=== PATIENT | male | born 1960 | race African-American/Black ===

== ENCOUNTER 2019-12-04 13:17 | Inpatient (IN) | payer OTHER ==
[2019-12-04] MEDS ORDERED: SODIUM CHLORIDE 0.9% 500 ML 500 ML IV ONE (13:49)
[2019-12-04] MEDS ORDERED: SODIUM CHLORIDE 0.9% 1000 ML 1,000 ML IV ONE (14:09)
[2019-12-04 14:16] LABS: Hematocrit 38.8 % (35.5-45.6); Hemoglobin 13.4 gm/dl (11.8-15.2); Mean Corpuscular HGB Conc 35 % (32-34); Mean Corpuscular Volume 87 fl (84-94); Platelet Count 381 K/mm3 (140-440); Red Blood Count 4.46 M/mm3 (3.65-5.03); Red Cell Distribution Width 13.2 % (13.2-15.2)
[2019-12-04] MEDS: SODIUM CHLORIDE 0.9% 1000 ML 1,000 ML IV ONE ×2 (14:20→15:00)
[2019-12-04 14:27] LABS: INR 1.17 (0.87-1.13)
[2019-12-04 14:40] LABS: Albumin 3.5 g/dL (3.9-5); Calcium 8.3 mg/dL (8.4-10.2)
[2019-12-04 14:52] LABS: Total Cells Counted 200
--- NOTE | 2019-12-04 14:52 | XRay Report ---
CHEST 1 VIEW 12/04/2019 1:46 PM INDICATION / CLINICAL INFORMATION: possible Sepsis. COMPARISON: None available. FINDINGS: SUPPORT DEVICES: None. HEART / MEDIASTINUM: No significant abnormality. LUNGS / PLEURA: No significant pulmonary or pleural abnormality. No pneumothorax. ADDITIONAL FINDINGS: No significant additional findings. IMPRESSION: No acute cardiopulmonary abnormality. Signer Name: Ta Spencer MD Signed: 12/04/2019 2:47 PM Workstation Name: [id number]
[2019-12-04 14:53] LABS: Basophils % (Manual) 0 % (0.0-1.8); Eosinophils % (Manual) 0 % (0.0-4.3); Large Platelets Few; Monocytes % (Manual) 4.5 % (0.0-7.3); Platelet Estimate Cons; RBC Morphology Normal; Toxic Granulation 1+
[2019-12-04] MEDS ORDERED: SODIUM CHLORIDE 0.9% 1000 ML IV SOLN IV ONE (16:20)
--- NOTE | 2019-12-04 16:22 | Emergency Department Report ---
- General Chief complaint: Hyperglycemia Stated complaint: HIGH BLOOD GLUCOSE Time Seen by Provider: 12/04/19 14:08 Source: patient, family Mode of arrival: Wheelchair Limitations: Language Barrier - History of Present Illness Initial comments: CC: "I am just so weak." HPI: THis is a 59 yo male without significant past medical history who presents with generalized weakness for several days Patient was diagnosed with diabetes by PCP. According to he has been unable to walk without assistance due to generalized weakness. Patient denies pain, fever. +nausea MD Complaint: generalized weakness -: Gradual, days(s) (several days) Location: generalized Severity: severe Consistency: constant Improves with: none Worsens with: none Context: recent illness (new diagnosis of diabetes) Associated Symptoms: denies other symptoms - Related Data Allergies Allergy/AdvReac Type Severity Reaction Status Date / Time No Known Allergies Allergy Unverified 12/04/19 13:48 ED Review of Systems ROS: Stated complaint: HIGH BLOOD GLUCOSE Other details as noted in HPI Comment: All other systems reviewed and negative Constitutional: malaise. denies: fever Respiratory: denies: cough, shortness of breath Cardiovascular: denies: chest pain Gastrointestinal: nausea. denies: abdominal pain Neurological: denies: headache ED Past Medical Hx - Past Medical History Previous Medical History?: No - Surgical History Past Surgical History?: No ED Physical Exam - General Limitations: Language Barrier General appearance: alert, other (pale, Kussmaul respirations) - Head Head exam: Present: atraumatic, normocephalic - Eye Eye exam: Present: normal appearance - ENT ENT exam: Present: normal orophraynx (no exudates or edema), mucous membranes dry - Neck Neck exam: Present: normal inspection, full ROM - Respiratory Respiratory exam: Present: normal lung sounds bilaterally, other (Kussmaul respirations). Absent: wheezes, rales, rhonchi - Cardiovascular Cardiovascular Exam: Present: normal rhythm, bradycardia, normal heart sounds. Absent: systolic murmur, diastolic murmur, rubs, gallop - GI/Abdominal GI/Abdominal exam: Present: soft, normal bowel sounds. Absent: distended, tenderness, guarding, rebound - Rectal Rectal exam: Present: deferred - Extremities Exam Extremities exam: Present: normal inspection - Neurological Exam Neurological exam: Present: alert, oriented X3 - Psychiatric Psychiatric exam: Present: normal affect, anxious - Skin Skin exam: Present: warm, dry, intact, normal color. Absent: rash ED Course Vital Signs 12/04/19 12/04/19 12/04/19 13:42 14:05 14:14 Temperature 97.6 F Pulse Rate 73 125 H 118 H Respiratory 18 31 H Rate Blood Pressure 97/63 Blood Pressure [Left] O2 Sat by Pulse 95 91 Oximetry 12/04/19 12/04/19 12/04/19 14:31 15:01 16:35 Temperature Pulse Rate 116 H 109 H 108 H Respiratory 30 H 32 H 25 H Rate Blood Pressure 96/64 127/48 Blood Pressure 135/79 [Left] O2 Sat by Pulse 100 100 100 Oximetry ED Medical Decision Making - Lab Data Result diagrams: 12/04/19 14:05 12/04/19 14:05 - EKG Data EKG shows normal: sinus rhythm, axis, QRS complexes, ST-T waves Rate: tachycardia - EKG Data 12/04/19 17:05 EKG obtained 1547 EKG interpreted by nj Sinus tachycardia rate 105 bpm normal axis prolonged QTC no ST elevation diffuse T wave flattening - Radiology Data Radiology results: report reviewed CHEST 1 VIEW 12/04/2019 1:46 PM INDICATION / CLINICAL INFORMATION: possible Sepsis. COMPARISON: None available. FINDINGS: SUPPORT DEVICES: None. HEART / MEDIASTINUM: No significant abnormality. LUNGS / PLEURA: No significant pulmonary or pleural abnormality. No pneumothorax. ADDITIONAL FINDINGS: No significant additional findings. IMPRESSION: No acute cardiopulmonary abnormality. - Medical Decision Making 1. Diabetic ketoacidosis, new onset diabetes. IV fluid resuscitation, IV insulin bolus, IV insulin infusion ordered. 2. Acute prerenal RODOLFO reflective of hypovolemia. likely vasomotor nephropathy with hyperkalemia. Hyperkalemia will resolve with IV insulin therapy. Patient is likely potassium depleted. He will ultimately need potassium repletion. 3. SIRS/Sepsis: Hypotension suspected due to hypovolemia however septic shock is a concern. Broad-spectrum antibiotics ordered. CT abdomen pelvis ordered in order to rule out intra-abdominal infection. Patient removed condom catheter according to nurse report. He ambulated to the bathroom without providing urine sample. 4. corrected sodium 132, 5. enteritis detected by CT scan, nonspecific finding in duodenum and jejunum, I am not convinced that this is a source of sepsis Critical Care Time: Yes Critical care attestation.: If time is entered above; I have spent that time in minutes in the direct care of this critically ill patient, excluding procedure time. 40 minutes of critical care time excluding procedures were used in the care of the patient. I came immediately to the bedside upon patient's arrival. I obtained history from EMS at the bedside. I discussed treatment plan with the nursing team members. I reviewed electronic record. I was concerned with diabetic ketoacidosis concerning patient's respiratory pattern . I was concerned for septic shock. Patient required multiple interventions and reassessments. ED Disposition Clinical Impression: Diabetes mellitus, new onset, Diabetic ketoacidosis, Prerenal acute renal failure, Sepsis Disposition: DC-[id number] OP ADMIT IP TO THIS HOSP Is pt being admited?: Yes Does the pt Need Aspirin: No Condition: Fair
[2019-12-04] MEDS ORDERED: INSULIN REGULAR, HUMAN 100 UNIT/ML 3ML VIAL IV ONE (16:23)
[2019-12-04] MEDS ORDERED: INSULIN REGULAR, HUMAN 100 UNITS/1 ML ONE (16:40)
[2019-12-04] MEDS ORDERED: INSULIN REGULAR, HUMAN 100 UNITS in SODIUM CHLORIDE 0.9% 99 ML IV SCH ×2 (17:00→18:00)
[2019-12-04] MEDS ORDERED: CEFEPIME/NS 2 GM/100 ML 2 GM/100 ML BAG IV SCH (17:00)
[2019-12-04] MEDS: metroNIDAZOLE/NS 500 MG/100 ML 500 MG/100 ML BAG IV SCH (17:25)
--- NOTE | 2019-12-04 17:27 | History and Physical Report ---
History of Present Illness Chief complaint: I have not been feeling well the past few days History of present illness: 59 YO Male with NO PMH presents to ED for evaluation. Patient states that he has been "feeling sick" over the past 3 days. Patient was seen and evaluated by his primary care physician and diagnosed with new onset diabetes. Patient reports that since that time he has experienced nausea, generalized weakness, decreased oral intake, polyuria, polydipsia, polyphagia. Patient also acknowledges decreased exercise tolerance, early fatigue, and inability to ambulate independently. Patient transported to [facility] via private vehicle for further care and evaluation. Patient seen and evaluated in the emergency department. All lab and imaging studies reviewed. Patient found to have sepsis, diabetic ketoacidosis, acute kidney injury, and metabolic acidosis. Patient admitted to ICU and initiated on sepsis as well as DKA protocols respectively. Patient denies fever, chills, chest pain, palpitations, productive cough, skin rash, recent ill contacts, or known exposure to COVID-19. No prior admission for review. No medication listed at time of admission for reconciliation. Past History Past Medical History: No medical history, other (Reviewed) Past Surgical History: No surgical history, Other (Reviewed) Social history: , lives with family. denies: smoking, alcohol abuse, prescription drug abuse Family history: no significant family history, other (Reviewed) Medications and Allergies Allergies Allergy/AdvReac Type Severity Reaction Status Date / Time No Known Allergies Allergy Unverified 12/04/19 13:48 Active Meds: Active Medications Insulin Human Regular 100 (units/ Sodium Chloride) 100 mls @ 6 mls/hr IV TITR ELIO; Protocol Metronidazole (Flagyl 500 Mg/100 Ml) 500 mg in 100 mls @ 100 mls/hr IV Q8H ELIO; Protocol Cefepime HCl (Cefepime/Ns 2 Gm/100 Ml) 2 gm in 100 mls @ 200 mls/hr IV Q12H ELIO; Protocol Review of Systems Constitutional: fatigue, weakness, malaise, no weight loss, no weight gain, no fever Ears, nose, mouth and throat: no ear pain, no ear discharge, no tinnitis, no decreased hearing, no nose pain Cardiovascular: no chest pain, no orthopnea, no palpitations, no rapid/irregular heart beat, no edema Respiratory: no cough, no cough with sputum, no hemoptysis, no shortness of breath, no dyspnea on exertion, no wheezing, no pain on inspiration Gastrointestinal: nausea, no abdominal pain, no vomiting, no diarrhea, no c onstipation Genitourinary Male: no hematuria, no flank pain, no discharge, no urinary frequency, no urinary hesitancy Rectal: no pain, no incontinence, no bleeding Musculoskeletal: no neck stiffness, no neck pain, no shooting arm pain, no arm numbness/tingling, no leg numbness/tingling, no redness of joints Integumentary: no rash, no pruritis, no redness, no sores, no wounds Neurological: no head injury, no transient paralysis, no paralysis, no weakness, no parathesias, no numbness Psychiatric: no anxiety, no memory loss (Sober), no hypersomnia, no change in appetite, no change in libido, no suicidal ideation Endocrine: polyphagia, excessive thirst, polydipsia, polyuria, no cold intolerance, no excessive sweating, no flushing, no proptosis, no deepening of the voice, no thyroid mass Hematologic/Lymphatic: no easy bruising, no easy bleeding, no lymphadenopathy, no lymphedema Allergic/Immunologic: no urticaria, no allergic rhinitis, no wheezing, no persistent infections, no anaphylaxis Exam - Constitutional Vitals: Temp Pulse Resp BP Pulse Ox 97.6 F 108 H 25 H 135/79 100 12/04/19 13:42 12/04/19 16:35 12/04/19 16:35 12/04/19 16:35 12/04/19 16:35 General appearance: Present: mild distress - EENT Eyes: Present: PERRL ENT: hearing intact, clear oral mucosa, other (Oral mucosa dry) - Neck Neck: Present: supple, normal ROM - Respiratory Respiratory effort: normal Respiratory: bilateral: CTA - Cardiovascular Rhythm: other (Tachycardia) Heart Sounds: Present: S1 & S2. Absent: rub, click - Extremities Extremities: pulses symmetrical, No edema Peripheral Pulses: abnormal (Capillary refill greater than 3.5 seconds) - Abdominal General gastrointestinal: Present: soft, non-tender, non-distended, normal bowel sounds Male genitourinary: Present: normal - Integumentary Integumentary: Present: dry, clammy, decreased turgor - Musculoskeletal Musculoskeletal: gait normal, strength equal bilaterally - Psychiatric Psychiatric: appropriate mood/affect, intact judgment & insight - Neurologic Neurologic: CNII-XII intact, moves all extremities Results - Labs CBC & Chem 7: 12/04/19 14:05 12/04/19 14:05 Labs: Abnormal lab results 12/04/19 12/04/19 12/04/19 Range/Units 14:02 14:05 14:05 WBC 33.0 H (4.5-11.0) K/mm3 MCHC 35 H (32-34) % Seg Neuts % (Manual) 93.5 H (40.0-70.0) % Lymphocytes % (Manual) 2.0 L (13.4-35.0) % Seg Neutrophils # Man 30.9 H (1.8-7.7) K/mm3 Lymphocytes # (Manual) 0.7 L (1.2-5.4) K/mm3 Monocytes # (Manual) 1.5 H (0.0-0.8) K/mm3 PT 15.1 H (12.2-14.9) Sec. INR 1.17 H (0.87-1.13) VBG pH (7.320-7.420) Sodium (137-145) mmol/L Potassium (3.6-5.0) mmol/L Chloride (98-107) mmol/L Carbon Dioxide (22-30) mmol/L BUN (9-20) mg/dL Creatinine (0.8-1.3) mg/dL Glucose (75-100) mg/dL POC Glucose 461 H (70-105) Lactic Acid (0.7-2.0) mmol/L Calcium (8.4-10.2) mg/dL Phosphorus (2.5-4.5) mg/dL Magnesium (1.7-2.3) mg/dL Albumin (3.9-5) g/dL 12/04/19 12/04/19 12/04/19 Range/Units 14:05 14:05 14:05 WBC (4.5-11.0) K/mm3 MCHC (32-34) % Seg Neuts % (Manual) (40.0-70.0) % Lymphocytes % (Manual) (13.4-35.0) % Seg Neutrophils # Man (1.8-7.7) K/mm3 Lymphocytes # (Manual) (1.2-5.4) K/mm3 Monocytes # (Manual) (0.0-0.8) K/mm3 PT (12.2-14.9) Sec. INR (0.87-1.13) VBG pH 7.128 L* (7.320-7.420) Sodium 120 L (137-145) mmol/L Potassium 5.8 H (3.6-5.0) mmol/L Chloride 84.5 L (98-107) mmol/L Carbon Dioxide 3 L* (22-30) mmol/L BUN 47 H (9-20) mg/dL Creatinine 1.5 H (0.8-1.3) mg/dL Glucose 595 H* (75-100) mg/dL POC Glucose (70-105) Lactic Acid 3.30 H* (0.7-2.0) mmol/L Calcium 8.3 L (8.4-10.2) mg/dL Phosphorus (2.5-4.5) mg/dL Magnesium (1.7-2.3) mg/dL Albumin 3.5 L (3.9-5) g/dL 12/04/19 12/04/19 Range/Units 16:34 16:34 WBC (4.5-11.0) K/mm3 MCHC (32-34) % Seg Neuts % (Manual) (40.0-70.0) % Lymphocytes % (Manual) (13.4-35.0) % Seg Neutrophils # Man (1.8-7.7) K/mm3 Lymphocytes # (Manual) (1.2-5.4) K/mm3 Monocytes # (Manual) (0.0-0.8) K/mm3 PT (12.2-14.9) Sec. INR (0.87-1.13) VBG pH (7.320-7.420) Sodium (137-145) mmol/L Potassium (3.6-5.0) mmol/L Chloride (98-107) mmol/L Carbon Dioxide (22-30) mmol/L BUN (9-20) mg/dL Creatinine (0.8-1.3) mg/dL Glucose (75-100) mg/dL POC Glucose (70-105) Lactic Acid 2.20 H* (0.7-2.0) mmol/L Calcium (8.4-10.2) mg/dL Phosphorus 4.60 H (2.5-4.5) mg/dL Magnesium 2.50 H (1.7-2.3) mg/dL Albumin (3.9-5) g/dL Assessment and Plan - Patient Problems (1) Sepsis Current Visit: Yes Status: Acute Plan to address problem: Sepsis Protocol: CBC, CMP, chest x-ray, urinalysis, IV antibiotic therapy, IV fluid resuscitation therapy, monitor urine output every shift, maintain mean arterial pressure greater than or equal to 65, serial lactic acid level, blood culture. The high probability of a clinically significant, sudden or life threatening deterioration of the [neuro, renal, endocrine] system(s) required my full and direct attention, intervention and personal management. The aggregate critical care time was [65] minutes. This time is in addition to time spent performing reported procedures but includes the following: [x] Data Review and interpretation [x] Patient assessment and monitoring of vital signs [x] Documentation [x] Medication orders and management (2) Acute kidney injury (RODOLFO) with acute tubular necrosis (ATN) Current Visit: Yes Status: Acute Plan to address problem: IV fluid resuscitation therapy, monitor urine output every shift, avoid n ephrotoxic agents. BMP, repeat BMP in a.m. to monitor serum creatinine. (3) Metabolic acidosis Current Visit: Yes Status: Acute Plan to address problem: IV fluid resuscitation therapy, serial lactic acid level, IV bicarbonate therapy. (4) Diabetic ketoacidosis Current Visit: Yes Status: Acute Qualifiers: Diabetes mellitus type: type 1 Plan to address problem: DKA protocol: Insulin drip, IV fluid resuscitation therapy, serial BMP, monitor anion gap, monitor urine output every shift. Potassium repletion as per protocol. (5) DVT prophylaxis Current Visit: Yes Status: Acute Plan to address problem: SCD to bilateral lower extremities while in bed, patient is ambulatory.
[2019-12-04] MEDS ORDERED: ACETAMINOPHEN 325 MG TAB PO PRN (17:28)
[2019-12-04] MEDS ORDERED: SODIUM BICARB 8.4% 50 MEQ/50 ML SYRINGE IV ONE ×2 (17:30→18:39)
[2019-12-04] MEDS ORDERED: ALBUTEROL 2.5 MG/3 ML NEBU IH PRN (17:32)
[2019-12-04] MEDS: CEFEPIME/NS 2 GM/100 ML 2 GM/100 ML BAG IV SCH (17:45)
--- NOTE | 2019-12-04 17:50 | Cat Scan Report ---
CT abdomen pelvis wo con INDICATION: sepsis. TECHNIQUE: All CT scans at this location are performed using the following dose modulation technique: Automated exposure control. Helical slices were obtained through the abdomen and pelvis. No contrast is adminis tered. COMPARISON: None available. FINDINGS: Abdomen: There is a small right pleural effusion. There is a hiatal hernia. The stomach is distended with fluid. The liver, spleen, pancreas, adrenal glands, and kidneys show no acute abnormality. There is wall thi ckening noted in the duodenum and proximal jejunum. The remainder of the small bowel is unremarkable. There are no renal or ureteral calculi. There is no inflammatory change. There is no free air. Pelvis: There is no obstruction or inflammation. There are no abnormal fluid collections. On review of bone windows, no acute osseous abnormalities are seen. IMPRESSION: 1. There is abnormal wall thickening in the duodenum and proximal jejunum suggesting an enteritis or less likely an infiltrative process.The stomach is distended with fluid. There is a small hiatal bebeto ia. There is a small right pleural effusion. Signer Name: Duane Montoya MD Signed: 12/04/2019 5:45 PM Workstation Name: [id number]
[2019-12-04 18:15] LABS: BUN/Creatinine Ratio 38; Blood Urea Nitrogen 46 mg/dL (9-20); Calcium 7.6 mg/dL (8.4-10.2); Hemolysis Index 14
[2019-12-04 19:53] LABS: Bilirubin,Urine NEG (Negative); Blood,Urine SM (Negative); Color,Urine Straw (Yellow); Mucus,Urine FEW /HPF; Protein,Urine <15 mg/dL mg/dL (Negative); Urobilinogen,Urine < 2.0 mg/dL (<2.0); WBC,Urine < 1.0 /HPF (0.0-6.0)
[2019-12-04 19:58] LABS: BUN/Creatinine Ratio 47; Hemolysis Index 21
[2019-12-04 20:18] LABS: Calcium 1.6 mg/dL (8.4-10.2)
[2019-12-04 20:22] LABS: Blood Urea Nitrogen 42 mg/dL (9-20)
[2019-12-04] MEDS: SODIUM CHLORIDE 0.9% 1000 ML 1,000 ML IV SCH (21:00)
[2019-12-04 22:00] LABS: BUN/Creatinine Ratio 36; Blood Urea Nitrogen 40 mg/dL (9-20); Calcium 7.9 mg/dL (8.4-10.2); Hemolysis Index 9
[2019-12-04] MEDS ORDERED: D5W/0.45% NACL/KCL 20 MEQ 20 MEQ/1,000 ML BAG IV ONE (22:49)
[2019-12-04] MEDS: D5W/0.45% NACL/KCL 20 MEQ 20 MEQ/1,000 ML BAG IV SCH (22:57)
[2019-12-05 00:18] LABS: BUN/Creatinine Ratio 44; Blood Urea Nitrogen 35 mg/dL (9-20); Hemolysis Index 5
[2019-12-05 02:15] LABS: BUN/Creatinine Ratio 41; Blood Urea Nitrogen 33 mg/dL (9-20); Calcium 7.9 mg/dL (8.4-10.2); Hemolysis Index 132
[2019-12-05] MEDS ORDERED: metroNIDAZOLE/NS 500 MG/100 ML 500 MG/100 ML BAG IV ONE ×3 (04:48→18:08)
[2019-12-05] MEDS ORDERED: HEPARIN 5,000 UNIT/1 ML VIAL ONE ×2 (04:48→14:09)
[2019-12-05] MEDS: metroNIDAZOLE/NS 500 MG/100 ML 500 MG/100 ML BAG IV SCH ×3 (04:53→18:15)
[2019-12-05] MEDS: HEPARIN 5,000 UNIT/1 ML VIAL SUB-Q SCH ×3 (04:54→22:25)
[2019-12-05 06:11] LABS: Hemoglobin 11.8 gm/dl (11.8-15.2); Mean Corpuscular HGB Conc 36 % (32-34); Mean Corpuscular Volume 83 fl (84-94); Platelet Count 284 K/mm3 (140-440); Red Blood Count 3.96 M/mm3 (3.65-5.03); Red Cell Distribution Width 13.1 % (13.2-15.2)
[2019-12-05 06:28] LABS: Alanine Aminotransferase 6 units/L (7-56); Blood Urea Nitrogen 27 mg/dL (9-20); Calcium 7.8 mg/dL (8.4-10.2); Hemolysis Index 10
[2019-12-05 06:34] LABS: BUN/Creatinine Ratio 39
--- NOTE | 2019-12-05 06:45 | Progress Note ---
Assessment and Plan Assessment and plan: 59 YO Male with NO PMH presents to ED for evaluation. Patient states that he has been "feeling sick" over the past 3 days. Patient was seen and evaluated by his primary care physician and diagnosed with new onset diabetes. Patient reports that since that time he has experienced nausea, generalized weakness, decreased oral intake, polyuria, polydipsia, polyphagia. Patient also acknowledges decreased exercise tolerance, early fatigue, and inability to ambulate independently. Patient transported to [facility] via private vehicle for further care and evaluation. Patient seen and evaluated in the emergency department. All lab and imaging studies reviewed. Patient found to have sepsis, diabetic ketoacidosis, acute kidney injury, and metabolic acidosis. Patient admitted to ICU and initiated on sepsis as well as DKA protocols respectively. Patient denies fever, chills, chest pain, palpitations, pr oductive cough, skin rash, recent ill contacts, or known exposure to COVID-19. No prior admission for review. No medication listed at time of admission for reconciliation. 12/04: This am, anion gap of 15, Give a bolus of fluid additional, restart home meds once gap is closed. Diabetic Education and patient can be down graded. On re-evaluation, gap is closed. Will downgrade. Continue antibiotics for possible colonic enteritis. Awaiting home medication language barrier despite language line patient still mildly lethargic discussed with nursing staff to keep a close eye on patient as we transition. (1) Sepsis Current Visit: Yes Status: Acute Plan to address problem: Sepsis Protocol: CBC, CMP, chest x-ray, urinalysis, IV antibiotic therapy, IV fluid resuscitation therapy, monitor urine output every shift, maintain mean arterial pressure greater than or equal to 65, serial lactic acid level, blood culture. (2) Acute kidney injury (RODOLFO) with acute tubular necrosis (ATN) Current Visit: Yes Status: Acute Plan to address problem: IV fluid resuscitation therapy, monitor urine output every shift, avoid nephrotoxic agents. BMP, repeat BMP in a.m. to monitor serum creatinine. (3) Metabolic acidosis Current Visit: Yes Status: Acute Plan to address problem: IV fluid resuscitation therapy, serial lactic acid level, IV bicarbonate therapy. (4) Diabetic ketoacidosis Current Visit: Yes Status: Acute Qualifiers: Diabetes mellitus type: type 1 Plan to address problem: DKA protocol: Insulin drip, IV fluid resuscitation therapy, serial BMP, monitor anion gap, monitor urine output every shift. Potassium repletion as per protocol. (5) DVT prophylaxis Current Visit: Yes Status: Acute Plan to address problem: SCD to bilateral lower extremities while in bed, patient is ambulatory. The high probability of a clinically significant, sudden or life threatening deterioration of the [neuro, renal, endocrine] system(s) required my full and direct attention, intervention and personal management. The aggregate critical care time was [35] minutes. This time is in addition to time spent performing reported procedures but includes the following: [x] Data Review and interpretation [x] Patient assessment and monitoring of vital signs [x] Documentation [x] Medication orders and management History Interval history: Patient seen and examined, confused. Hospitalist Physical - Physical exam Narrative exam: VITAL SIGNS: Reviewed. GENERAL: The patient appears normally developed, Vital signs as documented. HEAD: No signs of head trauma. EYES: Pupils are equal. Extraocular motions intact. EARS: Hearing grossly intact. MOUTH: Oropharynx is normal. NECK: No adenopathy, no JVD. CHEST: Chest with clear breath sounds bilaterally. No wheezes, rales, or rhonchi. CARDIAC: Regular rate and rhythm. S1 and S2, without murmurs, gallops, or rubs. VASCULAR: No Edema. Peripheral pulses normal and equal in all extremities. ABDOMEN: Soft, non tender and non distended. No rebound or guarding, and no masses palpated. Bowel Sounds normal. MUSCULOSKELETAL: Good range of motion of all major joints. Extremities without clubbing, cyanosis or edema. NEUROLOGIC EXAM: AWAKE, ORIENTED X1 LIMITED BY LANGUAGE MATT No focal sensory or strength deficits. Speech normal. Follows commands. PSYCHIATRIC: Mood normal. SKIN: detail exam as documented in skin assessment - Constitutional Vitals: Temp Pulse Resp BP Pulse Ox 97.6 F 121 H 24 123/76 100 12/04/19 13:42 12/05/19 01:31 12/05/19 01:31 12/05/19 01:31 12/05/19 01:31 General appearance: Present: mild distress Results - Labs CBC & Chem 7: 12/05/19 05:40 12/05/19 17:38 Labs: Laboratory Last Values WBC 22.0 K/mm3 (4.5-11.0) H 12/05/19 05:40 RBC 3.96 M/mm3 (3.65-5.03) 12/05/19 05:40 Hgb 11.8 gm/dl (11.8-15.2) 12/05/19 05:40 Hct 33.0 % (35.5-45.6) L 12/05/19 05:40 MCV 83 fl (84-94) L 12/05/19 05:40 MCH 30 pg (28-32) 12/05/19 05:40 MCHC 36 % (32-34) H 12/05/19 05:40 RDW 13.1 % (13.2-15.2) L 12/05/19 05:40 Plt Count 284 K/mm3 (140-440) 12/05/19 05:40 Add Manual Diff Complete 12/04/19 14:05 Total Counted 200 12/04/19 14:05 Seg Neuts % (Manual) 93.5 % (40.0-70.0) H 12/04/19 14:05 Band Neutrophils % 0 % 12/04/19 14:05 Lymphocytes % (Manual) 2.0 % (13.4-35.0) L 12/04/19 14:05 Reactive Lymphs % (Man) 0 % 12/04/19 14:05 Monocytes % (Manual) 4.5 % (0.0-7.3) 12/04/19 14:05 Eosinophils % (Manual) 0 % (0.0-4.3) 12/04/19 14:05 Basophils % (Manual) 0 % (0.0-1.8) 12/04/19 14:05 Metamyelocytes % 0 % 12/04/19 14:05 Myelocytes % 0 % 12/04/19 14:05 Promyelocytes % 0 % 12/04/19 14:05 Blast Cells % 0 % 12/04/19 14:05 Nucleated RBC % Not Reportable 12/04/19 14:05 Seg Neutrophils # Man 30.9 K/mm3 (1.8-7.7) H 12/04/19 14:05 Band Neutrophils # 0.0 K/mm3 12/04/19 14:05 Lymphocytes # (Manual) 0.7 K/mm3 (1.2-5.4) L 12/04/19 14:05 Abs React Lymphs (Man) 0.0 K/mm3 12/04/19 14:05 Monocytes # (Manual) 1.5 K/mm3 (0.0-0.8) H 12/04/19 14:05 Eosinophils # (Manual) 0.0 K/mm3 (0.0-0.4) 12/04/19 14:05 Basophils # (Manual) 0.0 K/mm3 (0.0-0.1) 12/04/19 14:05 Metamyelocytes # 0.0 K/mm3 12/04/19 14:05 Myelocytes # 0.0 K/mm3 12/04/19 14:05 Promyelocytes # 0.0 K/mm3 12/04/19 14:05 Blast Cells # 0.0 K/mm3 12/04/19 14:05 WBC Morphology Not Reportable 12/04/19 14:05 Hypersegmented Neuts Not Reportable 12/04/19 14:05 Hyposegmented Neuts Not Reportable 12/04/19 14:05 Hypogranular Neuts Not Reportable 12/04/19 14:05 Smudge Cells Not Reportable 12/04/19 14:05 Toxic Granulation 1+ 12/04/19 14:05 Toxic Vacuolation Not Reportable 12/04/19 14:05 Dohle Bodies Not Reportable 12/04/19 14:05 Pelger-Huet Anomaly Not Reportable 12/04/19 14:05 Delmi Rods Not Reportable 12/04/19 14:05 Platelet Estimate Cons 12/04/19 14:05 Clumped Platelets Not Reportable 12/04/19 14:05 Plt Clumps, EDTA Not Reportable 12/04/19 14:05 Large Platelets Few 12/04/19 14:05 Giant Platelets Not Reportable 12/04/19 14:05 Platelet Satelliting Not Reportable 12/04/19 14:05 Plt Morphology Comment Not Reportable 12/04/19 14:05 RBC Morphology Normal 12/04/19 14:05 Dimorphic RBCs Not Reportable 12/04/19 14:05 Polychromasia Not Reportable 12/04/19 14:05 Hypochromasia Not Reportable 12/04/19 14:05 Poikilocytosis Not Reportable 12/04/19 14:05 Anisocytosis Not Reportable 12/04/19 14:05 Microcytosis Not Reportable 12/04/19 14:05 Macrocytosis Not Reportable 12/04/19 14:05 Spherocytes Not Reportable 12/04/19 14:05 Pappenheimer Bodies Not Reportable 12/04/19 14:05 Sickle Cells Not Reportable 12/04/19 14:05 Target Cells Not Reportable 12/04/19 14:05 Tear Drop Cells Not Reportable 12/04/19 14:05 Ovalocytes Not Reportable 12/04/19 14:05 Helmet Cells Not Reportable 12/04/19 14:05 Novoa-Nelliston Bodies Not Reportable 12/04/19 14:05 Soudan Rings Not Reportable 12/04/19 14:05 Lawtons Cells Not Reportable 12/04/19 14:05 Bite Cells Not Reportable 12/04/19 14:05 Crenated Cell Not Reportable 12/04/19 14:05 Elliptocytes Not Reportable 12/04/19 14:05 Acanthocytes (Spur) Not Reportable 12/04/19 14:05 Rouleaux Not Reportable 12/04/19 14:05 Hemoglobin C Crystals Not Reportable 12/04/19 14:05 Schistocytes Not Reportable 12/04/19 14:05 Malaria parasites Not Reportable 12/04/19 14:05 Rahul Bodies Not Reportable 12/04/19 14:05 Hem Pathologist Commnt No 12/04/19 14:05 PT 15.1 Sec. (12.2-14.9) H 12/04/19 14:05 INR 1.17 (0.87-1.13) H 12/04/19 14:05 VBG pH 7.128 (7.320-7.420) L* 12/04/19 14:05 Sodium 136 mmol/L (137-145) L 12/05/19 05:40 Potassium 3.7 mmol/L (3.6-5.0) 12/05/19 05:40 Chloride 106.2 mmol/L (98-107) 12/05/19 05:40 Carbon Dioxide 14 mmol/L (22-30) L 12/05/19 05:40 Anion Gap 20 mmol/L 12/05/19 05:40 BUN 27 mg/dL (9-20) H 12/05/19 05:40 Creatinine 0.7 mg/dL (0.8-1.3) L 12/05/19 05:40 Estimated GFR > 60 ml/min 12/05/19 05:40 BUN/Creatinine Ratio 39 % 12/05/19 05:40 Glucose 155 mg/dL (75-100) H 12/05/19 05:40 POC Glucose 185 (70-105) H 12/05/19 05:55 Lactic Acid 1.00 mmol/L (0.7-2.0) 12/04/19 23:40 Calcium 7.8 mg/dL (8.4-10.2) L 12/05/19 05:40 Phosphorus 3.70 mg/dL (2.5-4.5) 12/04/19 17:44 Magnesium 2.40 mg/dL (1.7-2.3) H 12/04/19 17:44 Total Bilirubin 0.20 mg/dL (0.1-1.2) 12/05/19 05:40 AST 8 units/L (5-40) 12/05/19 05:40 ALT 6 units/L (7-56) L 12/05/19 05:40 Alkaline Phosphatase 56 units/L (35-129) 12/05/19 05:40 Total Protein 4.9 g/dL (6.3-8.2) L D 12/05/19 05:40 Albumin 3.0 g/dL (3.9-5) L 12/05/19 05:40 Albumin/Globulin Ratio 1.6 % 12/05/19 05:40 Urine Color Straw (Yellow) 12/04/19 19:00 Urine Turbidity Clear (Clear) 12/04/19 19:00 Urine pH 5.0 (5.0-7.0) 12/04/19 19:00 Ur Specific Hume 1.017 (1.003-1.030) 12/04/19 19:00 Urine Protein <15 mg/dl mg/dL (Negative) 12/04/19 19:00 Urine Glucose (UA) >=500 mg/dL (Negative) 12/04/19 19:00 Urine Ketones 80 mg/dL (Negative) 12/04/19 19:00 Urine Blood Sm (Negative) 12/04/19 19:00 Urine Nitrite Neg (Negative) 12/04/19 19:00 Urine Bilirubin Neg (Negative) 12/04/19 19:00 Urine Urobilinogen < 2.0 mg/dL (<2.0) 12/04/19 19:00 Ur Leukocyte Esterase Neg (Negative) 12/04/19 19:00 Urine WBC (Auto) < 1.0 /HPF (0.0-6.0) 12/04/19 19:00 Urine RBC (Auto) 10.0 /HPF (0.0-6.0) 12/04/19 19:00 U Epithel Cells (Auto) < 1.0 /HPF (0-13.0) 12/04/19 19:00 Urine Mucus Few /HPF 12/04/19 19:00 Microbiology: Microbiology 12/04/19 14:05 Peripheral/Venous Blood Culture - Preliminary Culture in Progress 12/04/19 14:05 Peripheral/Venous Blood Culture - Preliminary Culture in Progress Browning/IV: IV Catheter Type [Right Peripheral IV Forearm] Active Medications - Current Medications Current Medications: Generic Name Dose Route Start Last Admin Trade Name Freq PRN Reason Stop Dose Admin Acetaminophen 650 mg 12/04/19 17:28 Tylenol PO Q6H PRN Pain, Mild (1-3) Albuterol 2.5 mg 12/04/19 17:32 Proventil IH Q3HRT PRN Shortness Of Breath Heparin Sodium (Porcine) 5,000 unit 12/04/19 22:00 12/05/19 04:54 Heparin SUB-Q 5,000 unit Q12HR ELIO Administration Hydromorphone HCl 0.25 mg 12/04/19 17:28 Dilaudid IV Q4H PRN Pain, Moderate (4-6) Insulin Human Regular 100 100 mls @ 6 mls/hr 12/04/19 17:00 12/05/19 06:40 units/ Sodium Chloride IV 6 units/hr TITR ELIO 6 mls/hr Titration Protocol 6 UNITS/HR Metronidazole 500 mg in 100 mls @ 100 mls/hr 12/04/19 17:00 12/05/19 04:53 Flagyl 500 Mg/100 Ml IV 100 mls/hr Q8H ELIO Administration Protocol Cefepime HCl 2 gm in 100 mls @ 200 mls/hr 12/04/19 17:00 12/04/19 17:45 Cefepime/Ns 2 Gm/100 Ml IV 200 mls/hr Q12H ELIO Administration Protocol Levofloxacin/Dextrose 750 mg in 150 mls @ 100 mls/hr 12/05/19 10:00 Levaquin 750mg/150ml IV Q24HR ELIO Protocol Sodium Chloride 1,000 mls @ 135 mls/hr 12/04/19 17:45 12/04/19 21:00 Nacl 0.9% 1000 Ml IV 135 mls/hr DIRECT ELIO Administration Potassium Chloride/Dextrose/Sod Cl 20 meq in 1,000 mls @ 125 mls/hr 12/04/19 23:00 12/04/19 22:57 D5w/0.45% Nacl/Kcl 20 Meq IV 125 mls/hr DIRECT ELIO Administration Sodium Chloride 10 ml 12/04/19 22:00 Sodium Chloride Flush Syringe 10 Ml IV BID ELIO Sodium Chloride 10 ml 12/04/19 17:32 Sodium Chloride Flush Syringe 10 Ml IV PRN PRN LINE FLUSH
[2019-12-05] MEDS ORDERED: SODIUM BICARB 8.4% 50 MEQ/50 ML SYRINGE IV ONE ×2 (06:46→07:40)
[2019-12-05] MEDS ORDERED: SODIUM CHLORIDE 0.9% 1000 ML 2,000 ML IV ONE (06:47)
[2019-12-05 07:09] LABS: Basophils % (Manual) 0 % (0.0-1.8); Eosinophils % (Manual) 0 % (0.0-4.3); RBC Morphology Normal; Total Cells Counted 100
[2019-12-05 07:10] LABS: Platelet Estimate Cons
[2019-12-05] MEDS ORDERED: D5W/0.45% NACL/KCL 20 MEQ 20 MEQ/1,000 ML BAG IV ONE (07:40)
[2019-12-05] MEDS ORDERED: SODIUM CHLORIDE 0.9% 1000 ML 1,000 ML ONE (07:40)
[2019-12-05] MEDS ORDERED: CEFEPIME/NS 2 GM/100 ML 2 GM/100 ML BAG IV ONE ×2 (07:58→18:08)
[2019-12-05] MEDS: CEFEPIME/NS 2 GM/100 ML 2 GM/100 ML BAG IV SCH ×2 (08:02→18:15)
[2019-12-05] MEDS: D5W/0.45% NACL/KCL 20 MEQ 20 MEQ/1,000 ML BAG IV SCH (08:03)
[2019-12-05 10:24] LABS: Blood Urea Nitrogen 19 mg/dL (9-20); Calcium 7.8 mg/dL (8.4-10.2); Hemolysis Index 8
[2019-12-05 11:07] LABS: BUN/Creatinine Ratio 38
[2019-12-05] MEDS ORDERED: HYDROmorphone 1 MG/1 ML INJ ONE ×2 (11:20→14:10)
[2019-12-05] MEDS: HYDROmorphone 1 MG/1 ML INJ IV PRN ×2 (11:25→15:50)
--- NOTE | 2019-12-05 13:13 | Consultation ---
History of Present Illness Consult date: 12/05/19 Requesting physician: JOHN CARLISLE Reason for consult: other (Severe Sepsis; DKA) History of present illness: PULMONARY/CCM CONSULT NOTE (Full dictation # ) Please see dictated notes for full details Past History Past Medical History: No medical history, other (Reviewed) Past Surgical History: No surgical history, Other (Reviewed) Social history: , lives with family. denies: smoking, alcohol abuse, prescription drug abuse Family history: no significant family history, other (Reviewed) Medications and Allergies Allergies Allergy/AdvReac Type Severity Reaction Status Date / Time No Known Allergies Allergy Unverified 12/04/19 13:48 Home Medications Medication Instructions Recorded Confirmed Last Taken Type No Known Home Medications [No 12/04/19 12/04/19 Unknown History Reported Home Medications] Active Meds: Active Medications Acetaminophen (Tylenol) 650 mg PO Q6H PRN PRN Reason: Pain, Mild (1-3) Albuterol (Proventil) 2.5 mg IH Q3HRT PRN PRN Reason: Shortness Of Breath Heparin Sodium (Porcine) (Heparin) 5,000 unit SUB-Q Q12HR ELIO Last Admin: 12/05/19 04:54 Dose: 5,000 unit Documented by: Hydromorphone HCl (Dilaudid) 0.25 mg IV Q4H PRN PRN Reason: Pain, Moderate (4-6) Insulin Human Regular 100 (units/ Sodium Chloride) 100 mls @ 6 mls/hr IV TITR ELIO; Protocol Last Titration: 12/05/19 08:52 Dose: 3 units/hr, 3 mls/hr Documented by: Metronidazole (Flagyl 500 Mg/100 Ml) 500 mg in 100 mls @ 100 mls/hr IV Q8H ELIO; Protocol Last Admin: 12/05/19 04:53 Dose: 100 mls/hr Documented by: Cefepime HCl (Cefepime/Ns 2 Gm/100 Ml) 2 gm in 100 mls @ 200 mls/hr IV Q12H ELIO; Protocol Last Admin: 12/05/19 08:02 Dose: 200 mls/hr Documented by: Levofloxacin/Dextrose (Levaquin 750mg/150ml) 750 mg in 150 mls @ 100 mls/hr IV Q24HR ELIO; Protocol Sodium Chloride (Nacl 0.9% 1000 Ml) 1,000 mls @ 135 mls/hr IV DIRECT ELIO Last Admin: 12/04/19 21:00 Dose: 135 mls/hr Documented by: Potassium Chloride/Dextrose/Sod Cl (D5w/0.45% Nacl/Kcl 20 Meq) 20 meq in 1,000 mls @ 125 mls/hr IV DIRECT ELIO Last Admin: 12/05/19 08:03 Dose: 125 mls/hr Documented by: Sodium Chloride (Sodium Chloride Flush Syringe 10 Ml) 10 ml IV BID ELIO Last Admin: 12/05/19 07:56 Dose: 10 ml Documented by: Sodium Chloride (Sodium Chloride Flush Syringe 10 Ml) 10 ml IV PRN PRN PRN Reason: LINE FLUSH Physical Examination Vital signs: Vital Signs Temp Pulse Resp BP Pulse Ox 97.6 F 73 18 97/63 95 12/04/19 13:42 12/04/19 13:42 12/04/19 13:42 12/04/19 13:42 12/04/19 13:42 Results - Laboratory Findings CBC and BMP: 12/05/19 05:40 12/05/19 09:45 PT/INR, D-dimer PT 15.1 Sec. (12.2-14.9) H 12/04/19 14:05 INR 1.17 (0.87-1.13) H 12/04/19 14:05 Abnormal lab findings: Abnormal Labs 12/04/19 12/04/19 12/04/19 14:02 14:05 14:05 WBC 33.0 H Hct MCV MCHC 35 H RDW Seg Neuts % (Manual) 93.5 H Lymphocytes % (Manual) 2.0 L Seg Neutrophils # Man 30.9 H Lymphocytes # (Manual) 0.7 L Monocytes # (Manual) 1.5 H PT 15.1 H INR 1.17 H VBG pH Sodium Potassium Chloride Carbon Dioxide BUN Creatinine Glucose POC Glucose 461 H Lactic Acid Calcium Phosphorus Magnesium ALT Total Protein Albumin 12/04/19 12/04/19 12/04/19 14:05 14:05 14:05 WBC Hct MCV MCHC RDW Seg Neuts % (Manual) Lymphocytes % (Manual) Seg Neutrophils # Man Lymphocytes # (Manual) Monocytes # (Manual) PT INR VBG pH 7.128 L* Sodium 120 L Potassium 5.8 H Chloride 84.5 L Carbon Dioxide 3 L* BUN 47 H Creatinine 1.5 H Glucose 595 H* POC Glucose Lactic Acid 3.30 H* Calcium 8.3 L Phosphorus Magnesium ALT Total Protein Albumin 3.5 L 12/04/19 12/04/19 12/04/19 16:34 16:34 17:44 WBC Hct MCV MCHC RDW Seg Neuts % (Manual) Lymphocytes % (Manual) Seg Neutrophils # Man Lymphocytes # (Manual) Monocytes # (Manual) PT INR VBG pH Sodium Potassium Chloride Carbon Dioxide BUN Creatinine Glucose POC Glucose Lactic Acid 2.20 H* Calcium Phosphorus 4.60 H Magnesium 2.50 H 2.40 H ALT Total Protein Albumin 12/04/19 12/04/19 12/04/19 17:44 18:53 19:20 WBC Hct MCV MCHC RDW Seg Neuts % (Manual) Lymphocytes % (Manual) Seg Neutrophils # Man Lymphocytes # (Manual) Monocytes # (Manual) PT INR VBG pH Sodium 127 L D Potassium 5.6 H Chloride 94.4 L Carbon Dioxide 4 L* 4 L* BUN 46 H 42 H Creatinine Glucose 505 H* 364 H POC Glucose 456 H Lactic Acid Calcium 7.6 L 1.6 L* D Phosphorus Magnesium ALT Total Protein Albumin 12/04/19 12/04/19 12/04/19 20:00 20:58 21:32 WBC Hct MCV MCHC RDW Seg Neuts % (Manual) Lymphocytes % (Manual) Seg Neutrophils # Man Lymphocytes # (Manual) Monocytes # (Manual) PT INR VBG pH Sodium 134 L D Potassium Chloride Carbon Dioxide 9 L* BUN 40 H Creatinine Glucose 269 H POC Glucose 349 H 350 H Lactic Acid Calcium 7.9 L D Phosphorus Magnesium ALT Total Protein Albumin 12/04/19 12/04/19 12/04/19 22:02 22:58 23:40 WBC Hct MCV MCHC RDW Seg Neuts % (Manual) Lymphocytes % (Manual) Seg Neutrophils # Man Lymphocytes # (Manual) Monocytes # (Manual) PT INR VBG pH Sodium 135 L Potassium Chloride Carbon Dioxide 10 L BUN 35 H Creatinine Glucose 192 H POC Glucose 265 H 220 H Lactic Acid Calcium 8.0 L Phosphorus Magnesium ALT Total Protein Albumin 12/05/19 12/05/19 12/05/19 00:11 01:10 01:44 WBC Hct MCV MCHC RDW Seg Neuts % (Manual) Lymphocytes % (Manual) Seg Neutrophils # Man Lymphocytes # (Manual) Monocytes # (Manual) PT INR VBG pH Sodium 135 L Potassium Chloride Carbon Dioxide 15 L BUN 33 H Creatinine Glucose 165 H POC Glucose 197 H 212 H Lactic Acid Calcium 7.9 L Phosphorus Magnesium ALT Total Protein Albumin 12/05/19 12/05/19 12/05/19 02:15 05:01 05:40 WBC 22.0 H Hct 33.0 L MCV 83 L MCHC 36 H RDW 13.1 L Seg Neuts % (Manual) 88.0 H Lymphocytes % (Manual) 6.0 L Seg Neutrophils # Man 19.4 H Lymphocytes # (Manual) Monocytes # (Manual) 1.3 H PT INR VBG pH Sodium Potassium Chloride Carbon Dioxide BUN Creatinine Glucose POC Glucose 198 H 169 H Lactic Acid Calcium Phosphorus Magnesium ALT Total Protein Albumin 12/05/19 12/05/19 12/05/19 05:40 05:55 06:52 WBC Hct MCV MCHC RDW Seg Neuts % (Manual) Lymphocytes % (Manual) Seg Neutrophils # Man Lymphocytes # (Manual) Monocytes # (Manual) PT INR VBG pH Sodium 136 L Potassium Chloride Carbon Dioxide 14 L BUN 27 H Creatinine 0.7 L Glucose 155 H POC Glucose 185 H 191 H Lactic Acid Calcium 7.8 L Phosphorus Magnesium ALT 6 L Total Protein 4.9 L D Albumin 3.0 L 12/05/19 12/05/19 12/05/19 08:45 09:45 11:52 WBC Hct MCV MCHC RDW Seg Neuts % (Manual) Lymphocytes % (Manual) Seg Neutrophils # Man Lymphocytes # (Manual) Monocytes # (Manual) PT INR VBG pH Sodium 131 L Potassium Chloride Carbon Dioxide BUN Creatinine 0.5 L Glucose 116 H POC Glucose 131 H 190 H Lactic Acid Calcium 7.8 L Phosphorus Magnesium ALT Total Protein Albumin
[2019-12-05 18:12] LABS: Blood Urea Nitrogen 16 mg/dL (9-20); Calcium 7.7 mg/dL (8.4-10.2); Hemolysis Index 200
[2019-12-05 18:15] LABS: BUN/Creatinine Ratio 40
[2019-12-05] MEDS ORDERED: INSULIN REGULAR, HUMAN 100 UNIT/ML 3ML VIAL SUB-Q ONE (18:27)
[2019-12-05] MEDS ORDERED: DEXTROSE 50% IN WATER (25GM) 50 ML SYRINGE IV PRN (18:27)
[2019-12-05] MEDS: INSULIN LISPRO 100 UNIT/ML VIAL 3 mL SUB-Q SCH (22:25)
[2019-12-05] MEDS: INSULIN GLARGINE 100 UNITS/ML SUB-Q SCH (22:25)
[2019-12-05] MEDS: SODIUM CHLORIDE 0.9% 1000 ML 1,000 ML IV SCH (22:26)
[2019-12-06] MEDS: metroNIDAZOLE/NS 500 MG/100 ML 500 MG/100 ML BAG IV SCH ×3 (00:45→16:20)
[2019-12-06] MEDS: CEFEPIME/NS 2 GM/100 ML 2 GM/100 ML BAG IV SCH ×2 (04:16→16:20)
[2019-12-06] MEDS: INSULIN LISPRO 100 UNIT/ML VIAL 3 mL SUB-Q SCH ×4 (09:12→21:33)
[2019-12-06] MEDS: HEPARIN 5,000 UNIT/1 ML VIAL SUB-Q SCH ×2 (09:13→21:32)
--- NOTE | 2019-12-06 10:02 | Progress Note ---
Assessment and Plan (1) Sepsis Current Visit: Yes Status: Acute Plan to address problem: On antibiotics Leukocytosis improving Trend WCC and temperature curve Sepsis Protocol: CBC, CMP, chest x-ray, urinalysis, IV antibiotic therapy, IV fluid resuscitation therapy, monitor urine output every shift, maintain mean arterial pressure greater than or equal to 65, serial lactic acid level, blood culture. (2) Acute kidney injury (RODOLFO) with acute tubular necrosis (ATN) Current Visit: Yes Status: Acute Plan to address problem: Resolved. Avoid nephrotoxins and continue to monitor renal function BMP per primary service IV fluid resuscitation therapy, monitor urine output every shift, avoid nephrotoxic agents. BMP, repeat BMP in a.m. to monitor serum creatinine. (3) Metabolic acidosis Current Visit: Yes Status: Acute Plan to address problem: Much improved. IV fluid resuscitation therapy, serial lactic acid level, IV bicarbonate therapy. (4) Diabetic ketoacidosis Current Visit: Yes Status: Acute Qualifiers: Diabetes mellitus type: type 1 Plan to address problem: Monitor glycemic control. Target blood glucose <180mg/dL Diabetic education Avoid hypoglycemia DKA protocol: Insulin drip, IV fluid resuscitation therapy, serial BMP, monitor anion gap, monitor urine output every shift. Potassium repletion as per protocol. (5) DVT prophylaxis Current Visit: Yes Status: Acute Plan to address problem: SCD to bilateral lower extremities while in bed, patient is ambulatory. Subjective Date of service: 12/06/19 Interval history: Follow up for sepsis, diabetic ketoacidosis, acute kidney injury, and metabolic acidosis. Seen and examined. Vitals, labs, medications, chart reviewed. Awake and alert. Inadvertently pulled out his peripheral IV while ambulating to the bathroom. Denies any chest pain, no shortness of breath, no fevers or chills. NO adverse overnight events, nursing staff consulted. Objective - Exam Narrative Exam: VITAL SIGNS: Reviewed. GENERAL: The patient appears normally developed, Vital signs as documented. HEAD: No signs of head trauma. EYES: Pupils are equal. Extraocular motions intact. EARS: Hearing grossly intact. MOUTH: Oropharynx is normal. NECK: No adenopathy, no JVD. CHEST: Chest with clear breath sounds bilaterally. No wheezes, rales, or rhonchi. CARDIAC: Regular rate and rhythm. S1 and S2, without murmurs, gallops, or rubs. VASCULAR: No Edema. Peripheral pulses normal and equal in all extremities. ABDOMEN: Soft, non tender and non distended. No rebound or guarding, and no masses palpated. Bowel Sounds normal. MUSCULOSKELETAL: Good range of motion of all major joints. Extremities without clubbing, cyanosis or edema. NEUROLOGIC EXAM: AWAKE, ORIENTED X1 LIMITED BY LANGUAGE BARRIER No focal sensory or strength deficits. Speech normal. PSYCHIATRIC: Mood normal. SKIN: detail exam as documented in skin assessment Vital Signs - 12hr 12/05/19 12/05/19 12/05/19 22:07 22:23 22:31 Temperature 98.7 F Pulse Rate 104 H 133 H 132 H Respiratory 20 28 H 23 Rate Blood Pressure 126/75 120/70 120/70 O2 Sat by Pulse 98 Oximetry 12/05/19 12/05/19 12/05/19 22:41 23:03 23:11 Temperature Pulse Rate 128 H 123 H Respiratory 23 24 Rate Blood Pressure 120/70 120/70 120/70 O2 Sat by Pulse 96 95 Oximetry 12/06/19 12/06/19 12/06/19 00:00 03:51 07:36 Temperature 98.1 F Pulse Rate 107 H 111 H 101 H Respiratory 20 Rate Blood Pressure 111/63 138/75 O2 Sat by Pulse 99 98 Oximetry CBC and BMP: 12/05/19 05:40 12/05/19 17:38 ABG, PT/INR, D-dimer: PT/INR, D-dimer PT 15.1 Sec. (12.2-14.9) H 12/04/19 14:05 INR 1.17 (0.87-1.13) H 12/04/19 14:05 Abnormal lab findings: Abnormal Labs 12/04/19 12/04/19 12/04/19 14:02 14:05 14:05 WBC 33.0 H Hct MCV MCHC 35 H RDW Seg Neuts % (Manual) 93.5 H Lymphocytes % (Manual) 2.0 L Seg Neutrophils # Man 30.9 H Lymphocytes # (Manual) 0.7 L Monocytes # (Manual) 1.5 H PT 15.1 H INR 1.17 H VBG pH Sodium Potassium Chloride Carbon Dioxide BUN Creatinine Glucose POC Glucose 461 H Lactic Acid Calcium Phosphorus Magnesium ALT Total Protein Albumin 12/04/19 12/04/19 12/04/19 14:05 14:05 14:05 WBC Hct MCV MCHC RDW Seg Neuts % (Manual) Lymphocytes % (Manual) Seg Neutrophils # Man Lymphocytes # (Manual) Monocytes # (Manual) PT INR VBG pH 7.128 L* Sodium 120 L Potassium 5.8 H Chloride 84.5 L Carbon Dioxide 3 L* BUN 47 H Creatinine 1.5 H Glucose 595 H* POC Glucose Lactic Acid 3.30 H* Calcium 8.3 L Phosphorus Magnesium ALT Total Protein Albumin 3.5 L 12/04/19 12/04/19 12/04/19 16:34 16:34 17:44 WBC Hct MCV MCHC RDW Seg Neuts % (Manual) Lymphocytes % (Manual) Seg Neutrophils # Man Lymphocytes # (Manual) Monocytes # (Manual) PT INR VBG pH Sodium Potassium Chloride Carbon Dioxide BUN Creatinine Glucose POC Glucose Lactic Acid 2.20 H* Calcium Phosphorus 4.60 H Magnesium 2.50 H 2.40 H ALT Total Protein Albumin 12/04/19 12/04/19 12/04/19 17:44 18:53 19:20 WBC Hct MCV MCHC RDW Seg Neuts % (Manual) Lymphocytes % (Manual) Seg Neutrophils # Man Lymphocytes # (Manual) Monocytes # (Manual) PT INR VBG pH Sodium 127 L D Potassium 5.6 H Chloride 94.4 L Carbon Dioxide 4 L* 4 L* BUN 46 H 42 H Creatinine Glucose 505 H* 364 H POC Glucose 456 H Lactic Acid Calcium 7.6 L 1.6 L* D Phosphorus Magnesium ALT Total Protein Albumin 12/04/19 12/04/19 12/04/19 20:00 20:58 21:32 WBC Hct MCV MCHC RDW Seg Neuts % (Manual) Lymphocytes % (Manual) Seg Neutrophils # Man Lymphocytes # (Manual) Monocytes # (Manual) PT INR VBG pH Sodium 134 L D Potassium Chloride Carbon Dioxide 9 L* BUN 40 H Creatinine Glucose 269 H POC Glucose 349 H 350 H Lactic Acid Calcium 7.9 L D Phosphorus Magnesium ALT Total Protein Albumin 12/04/19 12/04/19 12/04/19 22:02 22:58 23:40 WBC Hct MCV MCHC RDW Seg Neuts % (Manual) Lymphocytes % (Manual) Seg Neutrophils # Man Lymphocytes # (Manual) Monocytes # (Manual) PT INR VBG pH Sodium 135 L Potassium Chloride Carbon Dioxide 10 L BUN 35 H Creatinine Glucose 192 H POC Glucose 265 H 220 H Lactic Acid Calcium 8.0 L Phosphorus Magnesium ALT Total Protein Albumin 12/05/19 12/05/19 12/05/19 00:11 01:10 01:44 WBC Hct MCV MCHC RDW Seg Neuts % (Manual) Lymphocytes % (Manual) Seg Neutrophils # Man Lymphocytes # (Manual) Monocytes # (Manual) PT INR VBG pH Sodium 135 L Potassium Chloride Carbon Dioxide 15 L BUN 33 H Creatinine Glucose 165 H POC Glucose 197 H 212 H Lactic Acid Calcium 7.9 L Phosphorus Magnesium ALT Total Protein Albumin 12/05/19 12/05/19 12/05/19 02:15 05:01 05:40 WBC 22.0 H Hct 33.0 L MCV 83 L MCHC 36 H RDW 13.1 L Seg Neuts % (Manual) 88.0 H Lymphocytes % (Manual) 6.0 L Seg Neutrophils # Man 19.4 H Lymphocytes # (Manual) Monocytes # (Manual) 1.3 H PT INR VBG pH Sodium Potassium Chloride Carbon Dioxide BUN Creatinine Glucose POC Glucose 198 H 169 H Lactic Acid Calcium Phosphorus Magnesium ALT Total Protein Albumin 12/05/19 12/05/19 12/05/19 05:40 05:55 06:52 WBC Hct MCV MCHC RDW Seg Neuts % (Manual) Lymphocytes % (Manual) Seg Neutrophils # Man Lymphocytes # (Manual) Monocytes # (Manual) PT INR VBG pH Sodium 136 L Potassium Chloride Carbon Dioxide 14 L BUN 27 H Creatinine 0.7 L Glucose 155 H POC Glucose 185 H 191 H Lactic Acid Calcium 7.8 L Phosphorus Magnesium ALT 6 L Total Protein 4.9 L D Albumin 3.0 L 12/05/19 12/05/19 12/05/19 08:45 09:45 11:52 WBC Hct MCV MCHC RDW Seg Neuts % (Manual) Lymphocytes % (Manual) Seg Neutrophils # Man Lymphocytes # (Manual) Monocytes # (Manual) PT INR VBG pH Sodium 131 L Potassium Chloride Carbon Dioxide 15 L BUN Creatinine 0.5 L Glucose 116 H POC Glucose 131 H 190 H Lactic Acid Calcium 7.8 L Phosphorus Magnesium ALT Total Protein Albumin 12/05/19 12/05/19 12/05/19 13:38 15:59 17:33 WBC Hct MCV MCHC RDW Seg Neuts % (Manual) Lymphocytes % (Manual) Seg Neutrophils # Man Lymphocytes # (Manual) Monocytes # (Manual) PT INR VBG pH Sodium Potassium Chloride Carbon Dioxide BUN Creatinine Glucose POC Glucose 202 H 206 H 186 H Lactic Acid Calcium Phosphorus Magnesium ALT Total Protein Albumin 12/05/19 12/05/19 12/05/19 17:38 20:14 22:27 WBC Hct MCV MCHC RDW Seg Neuts % (Manual) Lymphocytes % (Manual) Seg Neutrophils # Man Lymphocytes # (Manual) Monocytes # (Manual) PT INR VBG pH Sodium 134 L Potassium Chloride Carbon Dioxide 18 L BUN Creatinine 0.4 L Glucose 148 H POC Glucose 175 H 243 H Lactic Acid Calcium 7.7 L Phosphorus Magnesium ALT Total Protein Albumin 12/06/19 07:56 WBC Hct MCV MCHC RDW Seg Neuts % (Manual) Lymphocytes % (Manual) Seg Neutrophils # Man Lymphocytes # (Manual) Monocytes # (Manual) PT INR VBG pH Sodium Potassium Chloride Carbon Dioxide BUN Creatinine Glucose POC Glucose 186 H Lactic Acid Calcium Phosphorus Magnesium ALT Total Protein Albumin
[2019-12-06] MEDS: SODIUM CHLORIDE 0.9% 1000 ML 1,000 ML IV SCH (16:20)
[2019-12-06] MEDS: INSULIN GLARGINE 100 UNITS/ML SUB-Q SCH (21:32)
[2019-12-07] MEDS: metroNIDAZOLE/NS 500 MG/100 ML 500 MG/100 ML BAG IV SCH ×3 (00:24→16:55)
[2019-12-07] MEDS: SODIUM CHLORIDE 0.9% 1000 ML 1,000 ML IV SCH ×3 (03:20→22:37)
[2019-12-07] MEDS: CEFEPIME/NS 2 GM/100 ML 2 GM/100 ML BAG IV SCH ×2 (05:51→16:54)
[2019-12-07] MEDS: INSULIN LISPRO 100 UNIT/ML VIAL 3 mL SUB-Q SCH ×4 (08:49→21:30)
[2019-12-07] MEDS: HEPARIN 5,000 UNIT/1 ML VIAL SUB-Q SCH ×2 (09:01→21:28)
--- NOTE | 2019-12-07 09:57 | Progress Note ---
Assessment and Plan (1) Sepsis Current Visit: Yes Status: Acute Plan to address problem: Sepsis Protocol: CBC, CMP, chest x-ray, urinalysis, IV antibiotic therapy, IV fluid resuscitation therapy, monitor urine output every shift, maintain mean arterial pressure greater than or equal to 65, serial lactic acid level, blood culture. Improved (2) Acute kidney injury (RODOLFO) with acute tubular necrosis (ATN) Current Visit: Yes Status: Acute Plan to address problem: IV fluid resuscitation therapy, monitor urine output every shift, avoid nephrotoxic agents. BMP, repeat BMP in a.m. to monitor serum creatinine. Improved (3) Metabolic acidosis Current Visit: Yes Status: Acute Plan to address problem: IV fluid resuscitation therapy, serial lactic acid level, IV bicarbonate the rapy. Improved (4) Diabetic ketoacidosis Current Visit: Yes Status: Acute Qualifiers: Diabetes mellitus type: type 1 Plan to address problem: DKA protocol: Insulin drip, IV fluid resuscitation therapy, serial BMP, monitor anion gap, monitor urine output every shift. Potassium repletion as per protocol. Patient to be discharged NovoLog Mix 70/30 20 units twice a day Diabetes education to be done. (5) DVT prophylaxis Current Visit: Yes Status: Acute Plan to address problem: SCD to bilateral lower extremities while in bed, patient is ambulatory. Subjective Date of service: 12/06/19 Principal diagnosis: DKA, sepsis Interval history: 59 YO Male with NO PMH presents to ED for evaluation. Patient states that he has been "feeling sick" over the past 3 days. Patient was seen and evaluated by his primary care physician and diagnosed with new onset diabetes. Patient reports that since that time he has experienced nausea, generalized weakness, decreased oral intake, polyuria, polydipsia, polyphagia. Patient also acknowledges decreased exercise tolerance, early fatigue, and inability to ambulate independently. Patient transported to [facility] via private vehicle for further care and evaluation. Patient seen and evaluated in the emergency department. All lab and imaging studies reviewed. Patient found to have sepsis, diabetic ketoacidosis, acute kidney injury, and metabolic acidosis. Patient admitted to ICU and initiated on sepsis as well as DKA protocols respectively. Patient denies fever, chills, chest pain, palpitations, productive cough, skin rash, recent ill contacts, or known exposure to COVID-19. No prior admission for review. No medication listed at time of admission for reconciliation. 12/04: This am, anion gap of 15, Give a bolus of fluid additional, restart home meds once gap is closed. Diabetic Education and patient can be down graded. On re-evaluation, gap is closed. Will downgrade. Continue antibiotics for possible colonic enteritis. Awaiting home medication language barrier despite language line patient still mildly lethargic discussed with nursing staff to keep a close eye on patient as we transition. 12/06/2019 Patient symptomatically better blood glucose levels are better patient to be transferred to regular medical floor Objective - Constitutional Vitals: Vital Signs - 12hr 12/06/19 12/07/19 12/07/19 23:10 03:41 04:16 Temperature 99.5 F 97.8 F Pulse Rate 96 H 91 H 85 Respiratory 20 20 Rate Blood Pressure 118/73 131/73 Blood Pressure [Left] O2 Sat by Pulse 97 98 Oximetry 12/07/19 07:46 Temperature 98.1 F Pulse Rate 106 H Respiratory 21 Rate Blood Pressure Blood Pressure 145/83 [Left] O2 Sat by Pulse 97 Oximetry General appearance: Present: no acute distress, well-nourished - EENT Eyes: PERRL, EOM intact ENT: hearing intact, clear oral mucosa Ears: bilateral: normal - Neck Neck: supple, normal ROM - Respiratory Respiratory effort: normal Respiratory: bilateral: CTA - Breasts Breasts: normal - Cardiovascular Heart rate: 78 Rhythm: regular Heart Sounds: Present: S1 & S2. Absent: gallop, rub Extremities: pulses intact, No edema, normal color, Full ROM - Gastrointestinal General gastrointestinal: Present: soft, non-tender, non-distended, normal bowel sounds - Genitourinary Male genitourinary: normal - Integumentary Integumentary: clear, warm, dry - Musculoskeletal Musculoskeletal: 1, strength equal bilaterally - Neurologic Neurologic: moves all extremities - Psychiatric Psychiatric: memory intact, appropriate mood/affect, intact judgment & insight - Labs CBC & Chem 7: 12/08/19 05:43 12/08/19 05:43 Labs: Abnormal lab results 12/06/19 12/06/19 12/06/19 Range/Units 13:53 17:05 21:22 POC Glucose 299 H 213 H 167 H (70-105) 12/07/19 Range/Units 07:19 POC Glucose 121 H (70-105)
--- NOTE | 2019-12-07 14:05 | Progress Note ---
Assessment and Plan Patient awake. resting on room air.O2 saturation 98%. Patient is not good historian. Says history of smoking. Counselled to stop smoking. - Patient Problems (1) Acute kidney injury (RODOLFO) with acute tubular necrosis (ATN) Current Visit: Yes Status: Acute Plan to address problem: Management as per nephrology. (2) Diabetes mellitus, new onset Current Visit: Yes Status: Acute Plan to address problem: Management as per primary care. (3) Diabetic ketoacidosis Current Visit: Yes Status: Acute Qualifiers: Diabetes mellitus type: type 1 Plan to address problem: Management as per primary care. (4) Sepsis Current Visit: Yes Status: Acute Plan to address problem: Patient is on cefepime and metronidazole. Subjective Date of service: 12/07/19 Interval history: Patient awake. resting on room air.O2 saturation 98%. Patient is not good historian. Says history of smoking. Counselled to stop smoking. Objective Vital Signs - 12hr 12/07/19 12/07/19 12/07/19 03:41 04:16 07:46 Temperature 97.8 F 98.1 F Pulse Rate 91 H 85 106 H Respiratory 20 21 Rate Blood Pressure 131/73 Blood Pressure 145/83 [Left] O2 Sat by Pulse 98 97 Oximetry 12/07/19 12/07/19 11:13 12:00 Temperature 98.0 F Pulse Rate 98 H 92 H Respiratory 20 Rate Blood Pressure Blood Pressure 136/80 [Left] O2 Sat by Pulse 98 Oximetry Constitutional: no acute distress, alert Eyes: non-icteric Neck: supple, no lymphadenopathy Effort: normal Ascultation: Bilateral: diminished breath sounds Cardiovascular: regular rate and rhythm Gastrointestinal: normoactive bowel sounds, soft, non-tender Integumentary: normal Extremities: no cyanosis, no edema Neurologic: non-focal exam, pupils equal and round Psychiatric: anxious CBC and BMP: 12/05/19 05:40 12/05/19 17:38 ABG, PT/INR, D-dimer: PT/INR, D-dimer PT 15.1 Sec. (12.2-14.9) H 12/04/19 14:05 INR 1.17 (0.87-1.13) H 12/04/19 14:05 Abnormal lab findings: Abnormal Labs 12/04/19 12/04/19 12/04/19 14:02 14:05 14:05 WBC 33.0 H Hct MCV MCHC 35 H RDW Seg Neuts % (Manual) 93.5 H Lymphocytes % (Manual) 2.0 L Seg Neutrophils # Man 30.9 H Lymphocytes # (Manual) 0.7 L Monocytes # (Manual) 1.5 H PT 15.1 H INR 1.17 H VBG pH Sodium Potassium Chloride Carbon Dioxide BUN Creatinine Glucose POC Glucose 461 H Lactic Acid Calcium Phosphorus Magnesium ALT Total Protein Albumin 12/04/19 12/04/19 12/04/19 14:05 14:05 14:05 WBC Hct MCV MCHC RDW Seg Neuts % (Manual) Lymphocytes % (Manual) Seg Neutrophils # Man Lymphocytes # (Manual) Monocytes # (Manual) PT INR VBG pH 7.128 L* Sodium 120 L Potassium 5.8 H Chloride 84.5 L Carbon Dioxide 3 L* BUN 47 H Creatinine 1.5 H Glucose 595 H* POC Glucose Lactic Acid 3.30 H* Calcium 8.3 L Phosphorus Magnesium ALT Total Protein Albumin 3.5 L 12/04/19 12/04/19 12/04/19 16:34 16:34 17:44 WBC Hct MCV MCHC RDW Seg Neuts % (Manual) Lymphocytes % (Manual) Seg Neutrophils # Man Lymphocytes # (Manual) Monocytes # (Manual) PT INR VBG pH Sodium Potassium Chloride Carbon Dioxide BUN Creatinine Glucose POC Glucose Lactic Acid 2.20 H* Calcium Phosphorus 4.60 H Magnesium 2.50 H 2.40 H ALT Total Protein Albumin 12/04/19 12/04/19 12/04/19 17:44 18:53 19:20 WBC Hct MCV MCHC RDW Seg Neuts % (Manual) Lymphocytes % (Manual) Seg Neutrophils # Man Lymphocytes # (Manual) Monocytes # (Manual) PT INR VBG pH Sodium 127 L D Potassium 5.6 H Chloride 94.4 L Carbon Dioxide 4 L* 4 L* BUN 46 H 42 H Creatinine Glucose 505 H* 364 H POC Glucose 456 H Lactic Acid Calcium 7.6 L 1.6 L* D Phosphorus Magnesium ALT Total Protein Albumin 12/04/19 12/04/19 12/04/19 20:00 20:58 21:32 WBC Hct MCV MCHC RDW Seg Neuts % (Manual) Lymphocytes % (Manual) Seg Neutrophils # Man Lymphocytes # (Manual) Monocytes # (Manual) PT INR VBG pH Sodium 134 L D Potassium Chloride Carbon Dioxide 9 L* BUN 40 H Creatinine Glucose 269 H POC Glucose 349 H 350 H Lactic Acid Calcium 7.9 L D Phosphorus Magnesium ALT Total Protein Albumin 12/04/19 12/04/19 12/04/19 22:02 22:58 23:40 WBC Hct MCV MCHC RDW Seg Neuts % (Manual) Lymphocytes % (Manual) Seg Neutrophils # Man Lymphocytes # (Manual) Monocytes # (Manual) PT INR VBG pH Sodium 135 L Potassium Chloride Carbon Dioxide 10 L BUN 35 H Creatinine Glucose 192 H POC Glucose 265 H 220 H Lactic Acid Calcium 8.0 L Phosphorus Magnesium ALT Total Protein Albumin 12/05/19 12/05/19 12/05/19 00:11 01:10 01:44 WBC Hct MCV MCHC RDW Seg Neuts % (Manual) Lymphocytes % (Manual) Seg Neutrophils # Man Lymphocytes # (Manual) Monocytes # (Manual) PT INR VBG pH Sodium 135 L Potassium Chloride Carbon Dioxide 15 L BUN 33 H Creatinine Glucose 165 H POC Glucose 197 H 212 H Lactic Acid Calcium 7.9 L Phosphorus Magnesium ALT Total Protein Albumin 12/05/19 12/05/19 12/05/19 02:15 05:01 05:40 WBC 22.0 H Hct 33.0 L MCV 83 L MCHC 36 H RDW 13.1 L Seg Neuts % (Manual) 88.0 H Lymphocytes % (Manual) 6.0 L Seg Neutrophils # Man 19.4 H Lymphocytes # (Manual) Monocytes # (Manual) 1.3 H PT INR VBG pH Sodium Potassium Chloride Carbon Dioxide BUN Creatinine Glucose POC Glucose 198 H 169 H Lactic Acid Calcium Phosphorus Magnesium ALT Total Protein Albumin 12/05/19 12/05/19 12/05/19 05:40 05:55 06:52 WBC Hct MCV MCHC RDW Seg Neuts % (Manual) Lymphocytes % (Manual) Seg Neutrophils # Man Lymphocytes # (Manual) Monocytes # (Manual) PT INR VBG pH Sodium 136 L Potassium Chloride Carbon Dioxide 14 L BUN 27 H Creatinine 0.7 L Glucose 155 H POC Glucose 185 H 191 H Lactic Acid Calcium 7.8 L Phosphorus Magnesium ALT 6 L Total Protein 4.9 L D Albumin 3.0 L 12/05/19 12/05/19 12/05/19 08:45 09:45 11:52 WBC Hct MCV MCHC RDW Seg Neuts % (Manual) Lymphocytes % (Manual) Seg Neutrophils # Man Lymphocytes # (Manual) Monocytes # (Manual) PT INR VBG pH Sodium 131 L Potassium Chloride Carbon Dioxide 15 L BUN Creatinine 0.5 L Glucose 116 H POC Glucose 131 H 190 H Lactic Acid Calcium 7.8 L Phosphorus Magnesium ALT Total Protein Albumin 12/05/19 12/05/19 12/05/19 13:38 15:59 17:33 WBC Hct MCV MCHC RDW Seg Neuts % (Manual) Lymphocytes % (Manual) Seg Neutrophils # Man Lymphocytes # (Manual) Monocytes # (Manual) PT INR VBG pH Sodium Potassium Chloride Carbon Dioxide BUN Creatinine Glucose POC Glucose 202 H 206 H 186 H Lactic Acid Calcium Phosphorus Magnesium ALT Total Protein Albumin 12/05/19 12/05/19 12/05/19 17:38 20:14 22:27 WBC Hct MCV MCHC RDW Seg Neuts % (Manual) Lymphocytes % (Manual) Seg Neutrophils # Man Lymphocytes # (Manual) Monocytes # (Manual) PT INR VBG pH Sodium 134 L Potassium Chloride Carbon Dioxide 18 L BUN Creatinine 0.4 L Glucose 148 H POC Glucose 175 H 243 H Lactic Acid Calcium 7.7 L Phosphorus Magnesium ALT Total Protein Albumin 12/06/19 12/06/19 12/06/19 07:56 13:53 17:05 WBC Hct MCV MCHC RDW Seg Neuts % (Manual) Lymphocytes % (Manual) Seg Neutrophils # Man Lymphocytes # (Manual) Monocytes # (Manual) PT INR VBG pH Sodium Potassium Chloride Carbon Dioxide BUN Creatinine Glucose POC Glucose 186 H 299 H 213 H Lactic Acid Calcium Phosphorus Magnesium ALT Total Protein Albumin 12/06/19 12/07/19 21:22 07:19 WBC Hct MCV MCHC RDW Seg Neuts % (Manual) Lymphocytes % (Manual) Seg Neutrophils # Man Lymphocytes # (Manual) Monocytes # (Manual) PT INR VBG pH Sodium Potassium Chloride Carbon Dioxide BUN Creatinine Glucose POC Glucose 167 H 121 H Lactic Acid Calcium Phosphorus Magnesium ALT Total Protein Albumin Chest x-ray: report reviewed, image reviewed Additional Studies: CHEST 1 VIEW 12/04/2019 1:46 PM INDICATION / CLINICAL INFORMATION: possible Sepsis. COMPARISON: None available. FINDINGS: SUPPORT DEVICES: None. HEART / MEDIASTINUM: No significant abnormality. LUNGS / PLEURA: No significant pulmonary or pleural abnormality. No pneumothorax. ADDITIONAL FINDINGS: No significant additional findings. IMPRESSION: No acute cardiopulmonary abnormality.
[2019-12-07 20:40] LABS: Basophils % (Auto) 0.1 % (0.0-1.8); Eosinophils # (Auto) 0.1 K/mm3 (0.0-0.4); Eosinophils % (Auto) 1.1 % (0.0-4.3); Hematocrit 29.9 % (35.5-45.6); Hemoglobin 10.6 gm/dl (11.8-15.2); Lymphocytes # (Auto) 1.3 K/mm3 (1.2-5.4); Lymphocytes % (Auto) 11.8 % (13.4-35.0); Mean Corpuscular HGB Conc 35 % (32-34); Mean Corpuscular Volume 83 fl (84-94); Monocytes # (Auto) 0.8 K/mm3 (0.0-0.8); Monocytes % (Auto) 7.2 % (0.0-7.3); Platelet Count 256 K/mm3 (140-440); Red Blood Count 3.61 M/mm3 (3.65-5.03)
[2019-12-07 20:48] LABS: Blood Urea Nitrogen 6 mg/dL (9-20); Hemolysis Index 1
[2019-12-07 21:04] LABS: BUN/Creatinine Ratio 12
[2019-12-07] MEDS: INSULIN GLARGINE 100 UNITS/ML SUB-Q SCH (21:29)
[2019-12-08] MEDS: metroNIDAZOLE/NS 500 MG/100 ML 500 MG/100 ML BAG IV SCH ×2 (01:50→08:30)
[2019-12-08] MEDS: CEFEPIME/NS 2 GM/100 ML 2 GM/100 ML BAG IV SCH (05:56)
[2019-12-08 06:47] LABS: Hematocrit 31.1 % (35.5-45.6); Hemoglobin 11.3 gm/dl (11.8-15.2); Mean Corpuscular HGB Conc 36 % (32-34); Mean Corpuscular Volume 82 fl (84-94); Platelet Count 281 K/mm3 (140-440); Red Blood Count 3.78 M/mm3 (3.65-5.03); Red Cell Distribution Width 12.9 % (13.2-15.2)
[2019-12-08 07:10] LABS: Alanine Aminotransferase 12 units/L (7-56); Blood Urea Nitrogen 3 mg/dL (9-20); Calcium 8.2 mg/dL (8.4-10.2); Hemolysis Index 3
[2019-12-08 07:11] LABS: BUN/Creatinine Ratio 10
[2019-12-08] MEDS: SODIUM CHLORIDE 0.9% 1000 ML 1,000 ML IV SCH (07:31)
[2019-12-08] MEDS: INSULIN LISPRO 100 UNIT/ML VIAL 3 mL SUB-Q SCH ×2 (08:27→12:11)
[2019-12-08] MEDS: HEPARIN 5,000 UNIT/1 ML VIAL SUB-Q SCH (09:20)
[2019-12-08 10:01] LABS: Basophils # (Auto) 0.1 K/mm3 (0.0-0.1); Eosinophils # (Auto) 0.1 K/mm3 (0.0-0.4); Monocytes % (Auto) 7.1 % (0.0-7.3)
[2019-12-08 10:16] LABS: Eosinophils % (Manual) 0 % (0.0-4.3); Myelocytes # (Manual) 0.3 K/mm3; Total Cells Counted 100
[2019-12-08 10:18] LABS: Platelet Estimate Consistent w Auto; RBC Morphology Normal
[2019-12-08 12:26] VITALS: BP 128/72
--- NOTE | 2019-12-08 13:49 | Progress Note ---
Assessment and Plan (1) Sepsis Current Visit: Yes Status: Acute Plan to address problem: Sepsis Protocol: CBC, CMP, chest x-ray, urinalysis, IV antibiotic therapy, IV fluid resuscitation therapy, monitor urine output every shift, maintain mean arterial pressure greater than or equal to 65, serial lactic acid level, blood culture. Improved (2) Acute kidney injury (RODOLFO) with acute tubular necrosis (ATN) Current Visit: Yes Status: Acute Plan to address problem: IV fluid resuscitation therapy, monitor urine output every shift, avoid nephrotoxic agents. BMP, repeat BMP in a.m. to monitor serum creatinine. Improved (3) Metabolic acidosis Current Visit: Yes Status: Acute Plan to address problem: IV fluid resuscitation therapy, serial lactic acid level, IV bicarbonate the rapy. Improved (4) Diabetic ketoacidosis Current Visit: Yes Status: Acute Qualifiers: Diabetes mellitus type: type 1 Plan to address problem: DKA protocol: Insulin drip, IV fluid resuscitation therapy, serial BMP, monitor anion gap, monitor urine output every shift. Potassium repletion as per protocol. Patient to be discharged NovoLog Mix 70/30 20 units twice a day Diabetes education to be done. (5) DVT prophylaxis Current Visit: Yes Status: Acute Plan to address problem: SCD to bilateral lower extremities while in bed, patient is ambulatory. Subjective Date of service: 12/07/19 Principal diagnosis: DKA, sepsis Interval history: 59 YO Male with NO PMH presents to ED for evaluation. Patient states that he has been "feeling sick" over the past 3 days. Patient was seen and evaluated by his primary care physician and diagnosed with new onset diabetes. Patient reports that since that time he has experienced nausea, generalized weakness, decreased oral intake, polyuria, polydipsia, polyphagia. Patient also acknowledges decreased exercise tolerance, early fatigue, and inability to ambulate independently. Patient transported to [facility] via private vehicle for further care and evaluation. Patient seen and evaluated in the emergency department. All lab and imaging studies reviewed. Patient found to have sepsis, diabetic ketoacidosis, acute kidney injury, and metabolic acidosis. Patient admitted to ICU and initiated on sepsis as well as DKA protocols respectively. Patient denies fever, chills, chest pain, palpitations, productive cough, skin rash, recent ill contacts, or known exposure to COVID-19. No prior admission for review. No medication listed at time of admission for reconciliation. 12/04: This am, anion gap of 15, Give a bolus of fluid additional, restart home meds once gap is closed. Diabetic Education and patient can be down graded. On re-evaluation, gap is closed. Will downgrade. Continue antibiotics for possible colonic enteritis. Awaiting home medication language barrier despite language line patient still mildly lethargic discussed with nursing staff to keep a close eye on patient as we transition. 12/06/2019 Patient symptomatically better blood glucose levels are better patient to be transferred to regular medical floor 12/07/2019 Slightly lethargic but doing well Objective - Constitutional Vitals: Vital Signs - 12hr 12/08/19 12/08/19 12/08/19 04:01 07:28 10:00 Temperature 98.0 F 97.9 F Pulse Rate 92 H 93 H Respiratory 18 18 18 Rate Blood Pressure 115/59 131/80 O2 Sat by Pulse 98 96 98 Oximetry 12/08/19 12/08/19 11:00 11:19 Temperature 98.2 F Pulse Rate 88 Respiratory 18 Rate Blood Pressure 128/72 O2 Sat by Pulse 98 99 Oximetry General appearance: Present: no acute distress, well-nourished - EENT Eyes: PERRL, EOM intact ENT: hearing intact, clear oral mucosa Ears: bilateral: normal - Neck Neck: supple, normal ROM - Respiratory Respiratory effort: normal Respiratory: bilateral: CTA - Breasts Breasts: normal - Cardiovascular Heart rate: 78 Rhythm: regular Heart Sounds: Present: S1 & S2. Absent: gallop, rub Extremities: pulses intact, No edema, normal color, Full ROM - Gastrointestinal General gastrointestinal: Present: soft, non-tender, non-distended, normal bowel sounds - Genitourinary Male genitourinary: normal - Integumentary Integumentary: clear, warm, dry - Musculoskeletal Musculoskeletal: 1, strength equal bilaterally - Neurologic Neurologic: moves all extremities - Psychiatric Psychiatric: memory intact, appropriate mood/affect, intact judgment & insight - Labs CBC & Chem 7: 12/08/19 05:43 12/08/19 05:43 Labs: Abnormal lab results 12/07/19 12/07/19 12/07/19 Range/Units 12:01 16:52 19:58 WBC 11.2 H (4.5-11.0) K/mm3 RBC 3.61 L (3.65-5.03) M/mm3 Hgb 10.6 L (11.8-15.2) gm/dl Hct 29.9 L (35.5-45.6) % MCV 83 L (84-94) fl MCHC 35 H (32-34) % RDW 13.0 L (13.2-15.2) % Lymph % (Auto) 11.8 L (13.4-35.0) % Alcorn # (Auto) (0.0-0.8) K/mm3 Seg Neutrophils % 79.8 H (40.0-70.0) % Seg Neuts % (Manual) (40.0-70.0) % Lymphocytes % (Manual) (13.4-35.0) % Monocytes % (Manual) (0.0-7.3) % Basophils % (Manual) (0.0-1.8) % Seg Neutrophils # 9.0 H (1.8-7.7) K/mm3 Seg Neutrophils # Man (1.8-7.7) K/mm3 Monocytes # (Manual) (0.0-0.8) K/mm3 Basophils # (Manual) (0.0-0.1) K/mm3 Sodium (137-145) mmol/L Potassium (3.6-5.0) mmol/L Chloride (98-107) mmol/L Carbon Dioxide (22-30) mmol/L BUN (9-20) mg/dL Creatinine (0.8-1.3) mg/dL Glucose (75-100) mg/dL POC Glucose 199 H 153 H (70-105) Calcium (8.4-10.2) mg/dL Total Protein (6.3-8.2) g/dL Albumin (3.9-5) g/dL 12/07/19 12/07/19 12/08/19 Range/Units 19:58 21:05 05:43 WBC 13.8 H (4.5-11.0) K/mm3 RBC (3.65-5.03) M/mm3 Hgb 11.3 L (11.8-15.2) gm/dl Hct 31.1 L (35.5-45.6) % MCV 82 L (84-94) fl MCHC 36 H (32-34) % RDW 12.9 L (13.2-15.2) % Lymph % (Auto) (13.4-35.0) % Alcorn # (Auto) 1.0 H (0.0-0.8) K/mm3 Seg Neutrophils % 76.9 H (40.0-70.0) % Seg Neuts % (Manual) 77.0 H (40.0-70.0) % Lymphocytes % (Manual) 11.0 L (13.4-35.0) % Monocytes % (Manual) 8.0 H (0.0-7.3) % Basophils % (Manual) 2.0 H (0.0-1.8) % Seg Neutrophils # 10.6 H (1.8-7.7) K/mm3 Seg Neutrophils # Man 10.6 H (1.8-7.7) K/mm3 Monocytes # (Manual) 1.1 H (0.0-0.8) K/mm3 Basophils # (Manual) 0.3 H (0.0-0.1) K/mm3 Sodium 155 H D (137-145) mmol/L Potassium (3.6-5.0) mmol/L Chloride 116.5 H (98-107) mmol/L Carbon Dioxide 32 H D (22-30) mmol/L BUN 6 L (9-20) mg/dL Creatinine 0.5 L (0.8-1.3) mg/dL Glucose 225 H (75-100) mg/dL POC Glucose 238 H (70-105) Calcium 8.0 L (8.4-10.2) mg/dL Total Protein (6.3-8.2) g/dL Albumin (3.9-5) g/dL 12/08/19 12/08/19 12/08/19 Range/Units 05:43 07:47 11:39 WBC (4.5-11.0) K/mm3 RBC (3.65-5.03) M/mm3 Hgb (11.8-15.2) gm/dl Hct (35.5-45.6) % MCV (84-94) fl MCHC (32-34) % RDW (13.2-15.2) % Lymph % (Auto) (13.4-35.0) % Alcorn # (Auto) (0.0-0.8) K/mm3 Seg Neutrophils % (40.0-70.0) % Seg Neuts % (Manual) (40.0-70.0) % Lymphocytes % (Manual) (13.4-35.0) % Monocytes % (Manual) (0.0-7.3) % Basophils % (Manual) (0.0-1.8) % Seg Neutrophils # (1.8-7.7) K/mm3 Seg Neutrophils # Man (1.8-7.7) K/mm3 Monocytes # (Manual) (0.0-0.8) K/mm3 Basophils # (Manual) (0.0-0.1) K/mm3 Sodium (137-145) mmol/L Potassium 3.0 L D (3.6-5.0) mmol/L Chloride (98-107) mmol/L Carbon Dioxide (22-30) mmol/L BUN 3 L (9-20) mg/dL Creatinine 0.3 L (0.8-1.3) mg/dL Glucose 195 H (75-100) mg/dL POC Glucose 172 H 216 H (70-105) Calcium 8.2 L (8.4-10.2) mg/dL Total Protein 5.7 L (6.3-8.2) g/dL Albumin 3.0 L (3.9-5) g/dL
--- NOTE | 2019-12-08 13:50 | Discharge Summary ---
Providers - Providers Date of Admission: 12/04/19 17:32 Date of discharge: 12/08/19 Attending physician: CORA BARBOSA 12/04/19 18:37 Consult to Physician [CONS] Routine Comment: Consulting Provider: PAULINO RIVERA Physician Instructions: Reason For Exam: Sepsis,DKA 12/07/19 10:18 Physical Therapy Evaluation and Treat [CONS] Routine Comment: Reason For Exam: to assist pt with gait due to generalized weakness Hospitalization Condition: Stable Hospital course: 59 YO Male with NO PMH presents to ED for evaluation. Patient states that he has been "feeling sick" over the past 3 days. Patient was seen and evaluated by his primary care physician and diagnosed with new onset diabetes. Patient reports that since that time he has experienced nausea, generalized weakness, decreased oral intake, polyuria, polydipsia, polyphagia. Patient also acknowledges decreased exercise tolerance, early fatigue, and inability to ambulate independently. Patient transported to [facility] via private vehicle for further care and evaluation. Patient seen and evaluated in the emergency department. All lab and imaging studies reviewed. Patient found to have sepsis , diabetic ketoacidosis, acute kidney injury, and metabolic acidosis. Patient admitted to ICU and initiated on sepsis as well as DKA protocols respectively. Patient denies fever, chills, chest pain, palpitations, productive cough, skin rash, recent ill contacts, or known exposure to COVID-19. No prior admission for review. No medication listed at time of admission for reconciliation. 12/04: This am, anion gap of 15, Give a bolus of fluid additional, restart home meds once gap is closed. Diabetic Education and patient can be down graded. On re-evaluation, gap is closed. Will downgrade. Continue antibiotics for possible colonic enteritis. Awaiting home medication language barrier despite language line patient still mildly lethargic discussed with nursing staff to keep a close eye on patient as we transition. 12/06/2019 Patient symptomatically better blood glucose levels are better patient to be transferred to regular medical floor 12/07/2019 Slightly lethargic but doing well 12/08/2019 Patient stable and ready for discharge Diabetes education done Patient to be on Novolin mix 20 units twice a day. Insulin for lifelong and the dosages to be adjusted depending on his blood gluc ose levels every 3 months Check hemoglobin A1c every 4 months Daughter informed and taught (1) Sepsis Current Visit: Yes Status: Acute Plan to address problem: Resolved patient to be discharged on Levaquin orally for 8 days (2) Acute kidney injury (RODOLFO) with acute tubular necrosis (ATN) Current Visit: Yes Status: Acute Plan to address problem: Improved (3) Metabolic acidosis Current Visit: Yes Status: Acute Plan to address problem: Improved (4) Diabetic ketoacidosis Current Visit: Yes Status: Acute Qualifiers: Diabetes mellitus type: type 1 Plan to address problem: Improved patient to be discharged on insulin 70/30 twice a day (5) DVT prophylaxis Current Visit: Yes Status: Acute Plan to address problem: SCD to bilateral lower extremities while in bed, patient is ambulatory. Disposition: - TO HOME OR SELFCARE Time spent for discharge: 32 minutes - Discharge Diagnoses (1) Acute kidney injury (RODOLFO) with acute tubular necrosis (ATN) Status: Acute (2) Diabetes mellitus, new onset Status: Acute (3) Diabetic ketoacidosis Status: Acute Qualifiers: Diabetes mellitus type: type 1 (4) Metabolic acidosis Status: Acute (5) Sepsis Status: Acute Core Measure Documentation - Palliative Care Palliative Care/ Comfort Measures: Not Applicable - Core Measures Any of the following diagnoses?: none Exam - Constitutional Vitals: Temp Pulse Resp BP Pulse Ox 98.2 F 88 18 128/72 99 12/08/19 11:19 12/08/19 11:19 12/08/19 11:19 12/08/19 11:19 12/08/19 11:19 General appearance: Present: no acute distress, well-nourished - EENT Eyes: Present: PERRL ENT: hearing intact, clear oral mucosa - Neck Neck: Present: supple, normal ROM - Respiratory Respiratory effort: normal Respiratory: bilateral: CTA - Cardiovascular Heart rate: 78 Rhythm: regular Heart Sounds: Present: S1 & S2. Absent: rub, click - Extremities Extremities: pulses symmetrical, No edema Peripheral Pulses: within normal limits - Abdominal General gastrointestinal: Present: soft, non-tender, non-distended, normal bowel sounds Male genitourinary: Present: normal - Integumentary Integumentary: Present: clear, warm, dry - Musculoskeletal Musculoskeletal: gait normal, strength equal bilaterally - Psychiatric Psychiatric: appropriate mood/affect, intact judgment & insight - Neurologic Neurologic: CNII-XII intact, moves all extremities - Allied Health Allied health notes reviewed: nursing, case management Plan Activity: no restrictions Diet: diabetic Follow up with: [facility] [Other] - 3-5 Days MICHELLE GONZALES MD [Staff Physician] - 7 Days
[2019-12-08] MEDS ORDERED: POTASSIUM CHLORIDE ER 20 MEQ TAB PO ONE (14:00)
== END 2019-12-08 15:10 | disposition home or self-care (01) | DRG 871 ==
LOC: ED 13:17 → CC1 17:32 → 4A 12-05 18:33
PROVIDERS: ADMIT Internal Medicine; ATTEND Internal Medicine
DX: A41.9 Sepsis, unspecified organism (principal); E10.10 Type 1 diabetes mellitus with ketoacidosis without coma; N17.0 Acute kidney failure with tubular necrosis
CPT/HCPCS: 36415; 71045; 74176; 80048; 80053; 81001; 82140; 82805; 82962; 83735; 84100; 85007; 85025; 85610; 87040; 87086; 93005; G0378; J0692; J1170; J1644; J1815; J7030